=== PATIENT | male | born 1955 | race Caucasian/White ===

== ENCOUNTER 2018-08-16 17:50 | Emergency (ER) | payer BC, OTHER ==
[~2018-08-16] VITALS: Ht 188 cm; Wt 86.2 kg
--- OUTSIDE RECORDS SUMMARY | 2018-08-16 17:55 | XMS REPORT | Clinical Summary ---
Author Author [facility] Organization [facility] Address Unknown Phone Unavailable Care Team Providers Care Portable Router Operator Name Role Phone Glenroy Walker MD PCP Kyle Castillo MD Unavailable Sallie Nelson MD Unavailable Source Comments Some departments are not documenting in the electronic medical record. If you do not see the information that you expected, contact Release of Information in the Health Information Management department at [phone] for further assistance in locating additional records.[facility] Allergies No Known Allergies Current Medications Prescription Sig. Disp. Refills Start End Date Status Date LISINOPRIL PO Take by mouth. Active ALPRAZOLAM (XANAX PO) Take by mouth. Active NAPROXEN PO Take by mouth. Active Needle (Disp) 22 G 22 x 1 as Needed. Use as 10 Each 4 09/05/20 Active 1/2 " ndle directed 15 Syringe (Disposable) 3 mL as Needed. Use as 10 Syringe 4 09/05/20 Active syrg directed 15 Syringe (Disposable) 3 mL as Needed. Use as 10 Syringe 4 09/05/20 Active syrg directed 15 Needle (Disp) 22 G 22 Use as directed for 20 each 11 05/14/20 Active gauge x 1 1/2" ndle Testosterone IM 17 Injection. tamsulosin (FLOMAX) 0.4 TAKE 1 CAPSULE TWICE A 180 capsule 3 02/03/20 Active mg capsule DAY TAKE 30 MINUTES AFTER 18 SAME MEAL. DO NOT CUT/ CRUSH/ CHEW testosterone cypionate Inject 1 mL into the 10 mL 0 04/08/20 Active (DEPO-TESTOSTERONE) 200 muscle every 14 days. 18 mg/mL injection testosterone cypionate Inject 1 mL into the 10 mL 5 04/08/20 Active (DEPO-TESTOSTERONE) 200 muscle every 14 days. 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/01/2013 FHx: cancer of prostate 06/01/2013 Arthritis 06/01/2013 BPH (benign prostatic hyperplasia) 06/01/2013 Encounters Date Type Specialty Care Team Description 08/02/2018 Telephone Urology Sallie Nelson MD Results (PSA) 07/26/2018 Hospital Lab Sallie Nelson MD Encounter from Last 3 Months Social History Tobacco Use Types Packs/Day Years Used Date Never Smoker Smokeless Tobacco: Never Used Alcohol Use Drinks/Week oz/Week Comments Yes 0 Standard 0.0 drinks or equivalent Sex Assigned at Date Recorded Not on file Last Filed Vital Signs Vital Sign Reading Time Taken Blood Pressure 145/75 04/08/2018 11:17 AM CDT Pulse 75 04/08/2018 11:17 AM CDT Temperature - - Respiratory Rate 14 06/01/2013 1:01 PM CDT Oxygen Saturation - - Inhaled Oxygen - - Concentration Weight 87.5 kg (193 lb) 04/08/2018 11:17 AM CDT Height 185.4 cm (6' 1") 04/08/2018 11:17 AM CDT Body Mass Index 25.46 04/08/2018 11:17 AM CDT Plan of Treatment Health Maintenance Due Date Last Done Comments HEPATITIS C SCREENING 1955 PHYSICAL (COMPREHENSIVE) 1964 EXAM HIV SCREENING 1972 DTAP/TDAP VACCINES (1 - 1975 Tdap) COLORECTAL CANCER 2007 SCREENING SHINGLES RECOMBINANT 2007 VACCINE (1 of 2) INFLUENZA VACCINE 04/28/2018 Procedures Procedure Name Priority Date/Time Associated Diagnosis Comments PROSTATIC SPECIFIC Routine 07/26/2018 Elevated PSA Results for this ANTIGEN-PSA 11:45 AM CDT procedure are in the results section. from Last 3 Months Results * PROSTATIC SPECIFIC ANTIGEN-PSA (07/26/2018 11:45 AM) Prostatic Specific 2.71 <4.01 NG/ML [facility] Antigen Comment: REFERENCE RANGES AGEPSA VALUE <50<=1.5 50-54 <=2.0 55-59 <=3.0 60-69 <=4.0 70+<=6.0 Specimen Blood Performing Organization Address City/State/Zipcode Phone Number [facility] [address] [place] [address] from Last 3 Months
--- OUTSIDE RECORDS SUMMARY | 2018-08-16 17:56 | XMS REPORT | Continuity of Care Document ---
Author Author [facility] Organization [facility] Address Unknown Phone Unavailable Allergies Active Description Code Type Severity Reaction Onset Reported/Identified Relationship to Patient Clinical Status Yes No Known Allergies [id number] Drug Allergy Unknown N/A 08/15/2014 Medications There is no data. Problems Date Dx Coded Attending Type Code Diagnosis Diagnosed By 09/01/2014 SELAM PETERSEN Ot 575.8 09/01/2014 SELAM PETERSEN Ot 789.00 Procedures There is no data. Results There is no data. Encounters ACCT No. Visit Date/Time Discharge Status Pt. Type Provider Facility Loc./Unit Complaint [id number] 08/15/2014 11:59:00 08/15/2014 23:59:59 CLS Outpatient SELAM PETERSEN [facility] CARD [email or web address] 08/15/2014 12:57:00 ACT Document Registration
--- OUTSIDE RECORDS SUMMARY | 2018-08-16 17:56 | XMS REPORT | Encounter Summary ---
Author Author [facility] Organization [facility] Address Unknown Phone Unavailable Care Team Providers Care Emg Technician Name Role Phone Glenroy Walker MD PCP Kyle Castillo MD Unavailable Sallie Nelson MD Unavailable Reason for Visit * Reason Comments Results PSA Encounter Details Date Type Department Care Team Description 08/02/2018 Telephone [facility] Sallie Nelson MD Results (PSA) Physicians - Urology [address] [facility] [place] [address] [place] [address] [phone] [place] [address] Social History Tobacco Use Types Packs/Day Years Used Date Never Smoker Smokeless Tobacco: Never Used Alcohol Use Drinks/Week oz/Week Comments Yes 0 Standard 0.0 drinks or equivalent Sex Assigned at Date Recorded Not on file as of this encounter Miscellaneous Notes * Telephone Encounter - Anya Woods RN - 08/02/2018 5:33 PM DIGESTION OPERATOR Spoke with patient, let him know his PSA results of 2.[address] Nelson no intervention needed at this time. Did not see 1 year follow up scheduled, he states he does not need to make that appointment at this time, Dr. Nelson is "handing him off" to another urologist and he has an appointment for next March. No questions or needs at this time. in this encounter Plan of Treatment Not on fileas of this encounter Visit Diagnoses Not on filein this encounter
--- OUTSIDE RECORDS SUMMARY | 2018-08-16 17:56 | XMS REPORT | Encounter Summary ---
Author Author [facility] Organization [facility] Address Unknown Phone Unavailable Care Team Providers Care [employer] Consultant Name Role Phone Glenroy Walker MD PCP Kyle Castillo MD Unavailable Sallie Nelson MD Unavailable Encounter Details Date Type Department Care Team Description 07/26/2018 Hospital Clinlab Sallie Nelson MD Encounter [facility] [address] [place] [address] [place] [address] [phone] Social History Tobacco Use Types Packs/Day Years Used Date Never Smoker Smokeless Tobacco: Never Used Alcohol Use Drinks/Week oz/Week Comments Yes 0 Standard 0.0 drinks or equivalent Sex Assigned at Date Recorded Not on file as of this encounter Medications at Time of Discharge Medication Sig. Disp. Refills Start Date End Date ALPRAZOLAM (XANAX PO) Take by mouth. LISINOPRIL PO Take by mouth. NAPROXEN PO Take by mouth. Needle (Disp) 22 G 22 Use as directed for 20 each 11 05/14/2017 gauge x 1 1/2" ndle Testosterone IM Injection. Needle (Disp) 22 G 22 x 1 as Needed. Use as 10 Each 4 09/05/2015 1/2 " ndle directed Syringe (Disposable) 3 mL as Needed. Use as 10 Syringe 4 09/05/2015 syrg directed Syringe (Disposable) 3 mL as Needed. Use as 10 Syringe 4 09/05/2015 syrg directed tamsulosin (FLOMAX) 0.4 TAKE 1 CAPSULE TWICE A 180 capsule 3 2017 mg capsule DAY TAKE 30 MINUTES AFTER SAME MEAL. DO NOT CUT/ CRUSH/ CHEW testosterone cypionate Inject 1 mL into the 10 mL 0 04/08/2018 (DEPO-TESTOSTERONE) 200 muscle every 14 days. mg/mL injection testosterone cypionate Inject 1 mL into the 10 mL 5 04/08/2018 (DEPO-TESTOSTERONE) 200 muscle every 14 days. mg/mL injection as of this encounter Plan of Treatment Not on fileas of this encounter Procedures Procedure Name Priority Date/Time Associated Diagnosis Comments PROSTATIC SPECIFIC Routine 07/26/2018 Elevated PSA Results for this ANTIGEN-PSA 11:45 AM CDT procedure are in the results section. in this encounter Results * PROSTATIC SPECIFIC ANTIGEN-PSA (07/26/2018 11:45 AM) Prostatic Specific 2.71 <4.01 NG/ML [facility] Antigen Comment: REFERENCE RANGES AGEPSA VALUE <50<=1.5 50-54 <=2.0 55-59 <=3.0 60-69 <=4.0 70+<=6.0 Specimen Blood Performing Organization Address City/State/Zipcode Phone Number [facility] [address] [place] [address] in this encounter Visit Diagnoses Diagnosis Elevated PSA Elevated prostate specific antigen (PSA)
[2018-08-16 18:10] LABS: BASOPHILS % (AUTO) 0 % (0-10); EOSINOPHILS % (AUTO) 0 % (0-10); HEMATOCRIT 44 % (40-54); HEMOGLOBIN 15.3 G/DL (13.3-17.7); LYMPHOCYTES # (AUTO) 0.9 X 10^3 (1.0-4.0); LYMPHOCYTES % (AUTO) 8 % (12-44); MEAN CORPUSCULAR HEMOGLOBIN 33 PG (25-34); MEAN CORPUSCULAR HGB CONC 35 G/DL (32-36); MEAN CORPUSCULAR VOLUME 95 FL (80-99); MEAN PLATELET VOLUME 9.9 FL (7.4-10.4); MONOCYTES % (AUTO) 8 % (0-12); NEUTROPHILS # (AUTO) 9.6 X 10^3 (1.8-7.8); NEUTROPHILS % (AUTO) 83 % (42-75); PLATELET COUNT 210 10^3/uL (130-400); RED CELL DISTRIBUTION WIDTH 12.5 % (10.0-14.5); WHITE BLOOD COUNT 11.5 10^3/uL (4.3-11.0)
[2018-08-16] MEDS ORDERED: NS IV 1000 ML 1,000 ML IV SCH (18:15)
[2018-08-16 18:34] LABS: ALANINE AMINOTRANSFERASE 16 U/L (0-55); ALBUMIN 4.3 GM/DL (3.2-4.5); ALKALINE PHOSPHATASE 63 U/L (40-136); AMYLASE 60 U/L (25-125); BILIRUBIN,TOTAL 1.3 MG/DL (0.1-1.0); BUN/CREATININE RATIO 16; CALCIUM 9.8 MG/DL (8.5-10.1); CARBON DIOXIDE 23 MMOL/L (21-32); CHLORIDE 101 MMOL/L (98-107); GFR ESTIMATED > 60; GLUCOSE 115 MG/DL (70-105); LIPASE 18 U/L (8-78); POTASSIUM 3.6 MMOL/L (3.6-5.0); SODIUM 135 MMOL/L (135-145); TOTAL PROTEIN 7.2 GM/DL (6.4-8.2)
[2018-08-16] MEDS ORDERED: RECEIVED CONTRAST (Hold Metformin) IV SCH (19:00)
[2018-08-16] MEDS ORDERED: NS 250 ML (IVPB) BAG IV ONE (19:00)
[2018-08-16] MEDS ORDERED: IOHEXOL 350 MG/ML 100 ML (OMNIPAQUE 350) VIAL IV ONE (19:00)
--- NOTE | 2018-08-16 19:42 | Diagnostic Imaging Report ---
PROCEDURE: CT abdomen and pelvis with contrast. TECHNIQUE: Multiple contiguous axial images were obtained through the abdomen and pelvis after administration of intravenous contrast. INDICATION: Abdominal pain, nausea, vomiting, diarrhea, testicular cancer. COMPARISON: I have no previous for comparison. FINDINGS: There is abnormal distortion of proximal small bowel and its subtending fat at the midline at the epigastric region and tracking to the right inferiorly where there is some partial volvulation of its distal component. An internal hernia is suggested by this appearance, but this did not result in bowel obstruction and there is no evidence for ischemia or active inflammation within the potential hernia sac itself. There is no identifiable intussusception. The arterial and vascular structures coursing through this abnormal mesenteric process show no obstruction or engorgement. Stomach itself is nondilated. The duodenum appears intrinsically unremarkable. The liver, gallbladder, and spleen are nonacute. There are some hepatic cysts without bile duct dilatation. The pancreas is nonacute. Urinary tracts are unobstructed. There is no fluid collection. Urinary bladder and prostate are unremarkable. There is no appendicitis or diverticulitis. I cannot tell if there is malrotation or if there has been previous right hemicolectomy. There is no pneumatosis or free gas. Small simple appearing renal cortical cysts are noted. IMPRESSION: 1. Distortion and displacement of proximal small bowel and the subtending mesentery suggestive of a nonobstructive internal paraduodenal hernia. No bowel wall thickening, pneumatosis, or perforation. No findings of end organ ischemia or overt obstruction. Benign renal cysts noted. Scattered hepatic cysts. Either large bowel malrotation or previous right hemicolectomy. 2. No findings suggestive of metastatic disease in this patient with history of testicular cancer. Dictated by: Dictated on workstation # [id number]
[2018-08-16 19:45] LABS: BILIRUBIN,URINE NEGATIVE (NEGATIVE); CLARITY,URINE CLEAR; COLOR,URINE YELLOW; GLUCOSE, URINE (UA) NEGATIVE (NEGATIVE); KETONES,URINE 3+ (NEGATIVE); LEUKOCYTE ESTERASE ,URINE 2+ (NEGATIVE); NITRITE,URINE NEGATIVE (NEGATIVE); PH,URINE 7 (5-9); PROTEIN,URINE 1+ (NEGATIVE); UROBILINOGEN,URINE NORMAL (NORMAL)
[2018-08-16] MEDS ORDERED: fentaNYL INJECTION 100 MCG/2 ML AMP IVP ONE (19:45)
[2018-08-16 19:52] LABS: BACTERIA,URINE NEGATIVE /HPF; SQUAMOUS EPITHELIAL CELL,UR 0-2 /HPF; WBC,URINE 0-2 /HPF
[2018-08-16] MEDS ORDERED: RX-ONDANSETRON 4 MG ODT (ZOFRAN) PPK #4 PO STA (20:11)
--- NOTE | 2018-08-16 20:11 | ED Abdominal Pain ---
General Chief Complaint: Abdominal/GI Problems Stated Complaint: STOMACH PAIN Nursing Triage Note: AMB TO ROOM C/O OF ABD PAIN INTEMITTENT TODAY WITH DIARRHEA HAS NOTICED BLOOD IN STOOL. Sepsis Screen: No Definite Risk Source of Information: Patient Exam Limitations: No Limitations History of Present Illness Date Seen by Provider: Aug 16, 2018 Time Seen by Provider: 18:14 Initial Comments Patient is a 63 year old male who presents to the ED with complains of nausea, vomiting, and diarrhea, and abdominal pain that started this morning. He reports that he noticed blood on the toilet paper with his first episode of diarrhea this morning but has not with any other episode of diarrhea. Denies current pain or nausea at this time but states that it comes in waves. Timing/Duration: 1 Day Severity/Quality: Cramping Location: Generalized Abdomen Radiation: RLQ Associated Symptoms: Nausea/Vomiting Allergies and Home Medications Allergies Coded Allergies: No Known Allergies (Unverified Allergy, Unknown, 08/15/14) Patient Home Medication List Home Medication List Reviewed: Yes Review of Systems Review of Systems Constitutional: no symptoms reported, see HPI Gastrointestinal: See HPI, Abdominal Pain, Diarrhea, Nausea, Vomiting All Other Systems Reviewed Negative Unless Noted: Yes Past Gubqali-Aqmwaa-Prglav Hx Past Med/Social Hx: Reviewed Nursing Past Med/Soc Hx Patient Social History Alcohol Use: Occasionally Uses Recreational Drug Use: No Smoking Status: Never a Smoker Recent Foreign Travel: No Contact w/Someone Who Travel: No Recent Infectious Disease Expo: No Past Medical History Surgeries: Yes (TESTICLE) Hypertension Neurological: No Genitourinary: No Gastrointestinal: No Musculoskeletal: No Family Medical History Reviewed Nursing Family Hx Physical Exam Vital Signs Vital Signs - First Documented 08/16/18 18:20 Temp 99.0 Pulse 80 Resp 18 B/P (MAP) 110/78 (89) Capillary Refill : Less Than 3 Seconds Height/Weight/BMI Height: 6'2.00" Weight: 190lbs. oz. 86.351446jj; BMI Method:Stated General Appearance: WD/WN, no apparent distress Respiratory: chest non-tender, lungs clear, normal breath sounds, no respiratory distress, no accessory muscle use Cardiovascular: normal peripheral pulses, regular rate, rhythm, no edema, no gallop, no JVD, no murmur Gastrointestinal: normal bowel sounds, soft, no organomegaly, no pulsatile mass , tenderness (RLQ tenderness) Neurologic/Psychiatric: alert, normal mood/affect, oriented x 3 Skin: normal color, warm/dry Progress/Results/Core Measures Results/Orders Lab Results Laboratory Tests Test 08/16/18 18:04 08/16/18 19:25 Range/Units White Blood Count 11.5 H 4.3-11.0 10^3/uL Red Blood Count 4.70 4.35-5.85 10^6/uL Hemoglobin 15.3 13.3-17.7 G/DL Hematocrit 44 40-54 % Mean Corpuscular Volume 95 80-99 FL Mean Corpuscular Hemoglobin 33 25-34 PG Mean Corpuscular Hemoglobin Concent 35 32-36 G/DL Red Cell Distribution Width 12.5 10.0-14.5 % Platelet Count 210 130-400 10^3/uL Mean Platelet Volume 9.9 7.4-10.4 FL Neutrophils (%) (Auto) 83 H 42-75 % Lymphocytes (%) (Auto) 8 L 12-44 % Monocytes (%) (Auto) 8 0-12 % Eosinophils (%) (Auto) 0 0-10 % Basophils (%) (Auto) 0 0-10 % Neutrophils # (Auto) 9.6 H 1.8-7.8 X 10^3 Lymphocytes # (Auto) 0.9 L 1.0-4.0 X 10^3 Monocytes # (Auto) 1.0 0.0-1.0 X 10^3 Eosinophils # (Auto) 0.0 0.0-0.3 10^3/uL Basophils # (Auto) 0.0 0.0-0.1 10^3/uL Sodium Level 135 135-145 MMOL/L Potassium Level 3.6 3.6-5.0 MMOL/L Chloride Level 101 98-107 MMOL/L Carbon Dioxide Level 23 21-32 MMOL/L Anion Gap 11 5-14 MMOL/L Blood Urea Nitrogen 13 7-18 MG/DL Creatinine 0.80 0.60-1.30 MG/DL Estimat Glomerular Filtration Rate > 60 BUN/Creatinine Ratio 16 Glucose Level 115 H 70-105 MG/DL Calcium Level 9.8 8.5-10.1 MG/DL Corrected Calcium 9.6 8.5-10.1 MG/DL Total Bilirubin 1.3 H 0.1-1.0 MG/DL Aspartate Amino Transf (AST/SGOT) 18 5-34 U/L Alanine Aminotransferase (ALT/SGPT) 16 0-55 U/L Alkaline Phosphatase 63 40-136 U/L Total Protein 7.2 6.4-8.2 GM/DL Albumin 4.3 3.2-4.5 GM/DL Amylase Level 60 25-125 U/L Lipase 18 8-78 U/L Urine Color YELLOW Urine Clarity CLEAR Urine pH 7 5-9 Urine Specific [place] 1.010 L 1.016-1.022 Urine Protein 1+ H NEGATIVE Urine Glucose (UA) NEGATIVE NEGATIVE Urine Ketones 3+ H NEGATIVE Urine Nitrite NEGATIVE NEGATIVE Urine Bilirubin NEGATIVE NEGATIVE Urine Urobilinogen NORMAL NORMAL MG/DL Urine Leukocyte Esterase 2+ H NEGATIVE Urine RBC (Auto) NEGATIVE NEGATIVE Urine RBC NONE /HPF Urine WBC 0-2 /HPF Urine Squamous Epithelial Cells 0-2 /HPF Urine Crystals NONE /LPF Urine Bacteria NEGATIVE /HPF Urine Casts NONE /LPF Urine Mucus NEGATIVE /LPF Urine Culture Indicated NO My Orders Orders - FIGUEROA JAVED Comprehensive Metabolic Panel (08/16/18 18:03) Lipase (08/16/18 18:03) Amylase (08/16/18 18:03) Ua Culture If Indicated (08/16/18 18:03) Saline Lock/Iv-Start (08/16/18 18:03) Cbc With Automated Diff (08/16/18 18:03) Ct Abdomen/Pelvis W (08/16/18 18:03) Ns Iv 1000 Ml (Sodium Chloride 0.9%) (08/16/18 18:15) Iohexol Injection (Omnipaque 350 Mg/Ml 1 (08/16/18 19:00) Contrast Received (Contrast Received) (08/16/18 19:00) Ns (Ivpb) (Sodium Chloride 0.9%) (08/16/18 19:00) Fentanyl Injection (Sublimaze Injection (08/16/18 19:45) Rx-Hydrocodone/Apap 5-325 Mg (Rx-Vicodin (08/16/18 20:15) Rx-Ondansetron Po (Rx-Zofran Po) (08/16/18 20:11) Medications Given in ED Current Medications Medications Dose Ordered Sig/Stephen Route Start Time Stop Time Status Last Admin Dose Admin Fentanyl Citrate 50 mcg ONCE ONCE IVP 08/16/18 19:45 08/16/18 19:46 DC 08/16/18 19:39 50 MCG Iohexol 100 ml ONCE ONCE IV 08/16/18 19:00 08/16/18 19:06 DC 08/16/18 18:59 100 ML Sodium Chloride 250 ml ONCE ONCE IV 08/16/18 19:00 08/16/18 19:07 DC 08/16/18 18:59 80 ML Vital Signs/I&O 08/16/18 18:20 Temp 99.0 Pulse 80 Resp 18 B/P (MAP) 110/78 (89) Blood Pressure Mean: 89 Progress Progress Note : Time: 20:00 Progress Note I have seen and evaluated the patient. I have informed him of his imaging studies. I have discussed the imaging studies with Dr. Alvarez (General Surgeon television news photographer) and he recommends follow up in the clinic. The patient has an appoint with Dr. Hill on 08/18/18 for a consult for a colonoscopy. The patient was instructed to discuss CT findings with Stacy at this time and to return back to the ER if pain becomes worse before this visit. He agrees with plan of care. Diagnostic Imaging Diagonstic Imaging: CT Plain Films/CT/US/NM/MRI: abdomen Comments NAME: ALTHEA VILLALOBOS [facility] REC#: [id number] PHYSICIAN: FIGUEROA JAVED CC: CORTEZ JAVED THOMAS D Page 2 of 2 RADIOLOGY REPORT VIA [facility] [place], [place] CC: CORTEZ JAVED THOMAS D Page 1 of 1 RADIOLOGY REPORT NAME: ALTHEA VILLALOBOS [facility] REC#: [id number] PT STATUS: REG ER : 1955 PHYSICIAN: FIGUEROA JAVED ADMIT DATE: 08/16/18/ER Signed Date of Exam: 08/16/18 CT ABDOMEN/PELVIS W PROCEDURE: CT abdomen and pelvis with contrast. TECHNIQUE: Multiple contiguous axial images were obtained through the abdomen and pelvis after administration of intravenous contrast. INDICATION: Abdominal pain, nausea, vomiting, diarrhea, testicular cancer. COMPARISON: I have no previous for comparison. FINDINGS: There is abnormal distortion of proximal small bowel and its subtending fat at the midline at the epigastric region and tracking to the right inferiorly where there is some partial volvulation of its distal component. An internal hernia is suggested by this appearance, but this did not result in bowel obstruction and there is no evidence for ischemia or active inflammation within the potential hernia sac itself. There is no identifiable intussusception. The arterial and vascular structures coursing through this abnormal mesenteric process show no obstruction or engorgement. Stomach itself is nondilated. The duodenum appears intrinsically unremarkable. The liver, gallbladder, and spleen are nonacute. There are some hepatic cysts without bile duct dilatation. The pancreas is nonacute. Urinary tracts are unobstructed. There is no fluid collection. Urinary bladder and prostate are unremarkable. There is no appendicitis or diverticulitis. I cannot tell if there is malrotation or if there has been previous right hemicolectomy. There is no pneumatosis or free gas. Small simple appearing renal cortical cysts are noted. IMPRESSION: 1. Distortion and displacement of proximal small bowel and the subtending mesentery suggestive of a nonobstructive internal paraduodenal hernia. No bowel wall thickening, pneumatosis, or perforation. No findings of end organ ischemia or overt obstruction. Benign renal cysts noted. Scattered hepatic cysts. Either large bowel malrotation or previous right hemicolectomy. 2. No findings suggestive of metastatic disease in this patient with history of testicular cancer. Dictated by: Dictated on workstation # [id number] Dict: 08/16/181916 Trans: 08/16/181944 Interpreted by: ZANE CRESPO Electronically signed by: ZANE CRESPO 08/16/181944 Reviewed: Reviewed by Me Departure Impression Primary Impression: Abdominal pain Additional Impression: Hernia, duodenojejunal Disposition: 01 HOME, SELF-CARE Condition: Stable/Unchanged Departure-Patient Inst. Decision time for Depature: 20:09 Referrals: DULCE MARIA HILL WEN-CHOU MD (PCP/Family) Primary Care Physician Patient Instructions: Abdominal Hernia (DC), Acute Abdomen (Belly Pain), Adult (DC) Add. Discharge Instructions: Take medications as directed. Keep your appointment with Dr. Hill as scheduled and discuss the findings on your CT with him. Return back to the emergency room for any worsening abdominal pain, nausea, vomiting, blood in stool, or any other concerns as needed. All discharge instructions reviewed with patient and/or family. Voiced understanding. Copy Copies To 1: DULCE MARIA HILL TRAVIS Aug 16, 2018 20:10
[2018-08-16] MEDS ORDERED: RX-HYDROCODONE/APAP 5/325 MG #4 TAB PK PO PRN (20:15)
[2018-08-16 20:30] VITALS: BP 110/75
== END 2018-08-16 20:30 | disposition home or self-care (01) ==
LOC: EDUNIT# 17:50 → ER 17:52
DX: K45.8 Other specified abdominal hernia without obstruction or gangrene (principal); I10 Essential (primary) hypertension; Z98.890 Other specified postprocedural states
CPT/HCPCS: 36415; 74177; 80053; 81000; 82150; 83690; 85025

== ENCOUNTER → 2018-08-20 | Outpatient (CLI) | payer OTHER ==
[2018-08-20 07:06] LABS: BUN/CREATININE RATIO 16; CREATININE SERUM 0.81 MG/DL (0.60-1.30); GFR ESTIMATED > 60
--- NOTE | 2018-08-20 12:34 | Diagnostic Imaging Report ---
CLINICAL INDICATION: Patient with epigastric pain and upper abdominal hernia. Patient has history of testicular cancer. EXAM: Axial CT scan of the abdomen and pelvis performed without IV contrast. Rectal contrast was administered. Coronal and sagittal reformatted images were created. COMPARISON: CT scan of the abdomen and pelvis performed with contrast dated 08/16/2018. FINDINGS: There is a 3 mm noncalcified nodule in the left lung base, also seen on the prior study. Remainder of the visualized lung bases are clear. There are degenerative spurs involving both hips. There is spurring and facet arthropathy involving the lower lumbar spine. There is a 10 mm circumscribed low-density lesion involving the posterior aspect of the right lobe of the liver, suspected to represent a cyst. Otherwise, liver is unremarkable. The spleen, pancreas, adrenal glands, and both kidneys show no significant abnormality. The previously seen cyst involving the right kidney is not well visualized on this exam and is likely partially obscured by colonic enteric contrast streak artifact. There is no hydronephrosis or renal stone seen. The bladder is partially fluid filled with no gross abnormalities visualized. There is no intra-abdominal free air or free fluid. There is no significant intra-abdominal or pelvic lymphadenopathy. There is interval resolution of the previously seen suspected para-duodenal internal hernia. There is no evidence of small bowel obstruction. Due to incomplete distention of the contrast-filled intestine, unable to properly evaluate for intestinal abnormality. There is no evidence of colonic malrotation. The stomach is partially air and fluid filled and otherwise unremarkable. The extra-abdominal and extrapelvic soft tissue structures are unremarkable. Phleboliths are seen in the pelvis. Again seen degenerative disease of the lumbar spine including grade 1 anterolisthesis of L3 on L4. IMPRESSION: 1: There is no evidence of acute abdominal or pelvic process seen on this exam. 2: Interval resolution of the previously seen para-duodenal internal hernia. There is no evidence of colonic malrotation or intestinal obstruction. There is no intra-abdominal free air or free fluid. 3: The remainder of this exam shows no significant interval change compared to the prior study of comparison. Dictated by: Dictated on workstation # [id number]
== END ==
LOC: RAD 06:36
PROVIDERS: ATTEND Surgery
DX: K45.8 Other specified abdominal hernia without obstruction or gangrene (principal); Z85.47 Personal history of malignant neoplasm of testis
CPT/HCPCS: 36415; 74176; 82565; 84520